=== PATIENT | male | born 2000 | race Caucasian/White ===

== ENCOUNTER 2021-10-08 16:42 | Observation (INO) | payer BC, SELFPAY ==
[2021-10-08] VITALS (7 sets, daily range): BP systolic 99–139; BP diastolic 58–82; PULSE 85–97; RESP 14–22; TEMP 36.2–37.7; O2SAT 99–100; BMI 17.6
--- NOTE | 2021-10-08 16:45 | DI.CT_ITS ---
Exam(s) CT ABDOMEN PELVIS W EXAM: CT ABDOMEN PELVIS W CLINICAL HISTORY: lower R> L abd pain TECHNIQUE: Imaging Protocol: Axial computed tomography images with coronal and sagittal reformatted images were created and reviewed CONTRAST MATERIAL: Intravenous: Omnipaque 350 Contrast volume:73 mL Oral: No COMPARISON: No exams were available for comparison FINDINGS: ABDOMEN: Lung Bases: Normal where visualized. Liver: Normal density. No measurable mass. Portal, Superior Mesenteric, and Splenic Veins: Unremarkable. Gallbladder and Biliary Tract: No radiodense calculus or dilation. Pancreas: Normal density, no abnormal calcifications or inflammatory process. Spleen: Normal. Adrenals: No masses seen. Kidneys: Normal size, contour and axis. No radiodense stones or obstructive uropathy. No masses seen. Abdominal Aorta: Abdominal portion non-dilated. Bowel: No obstruction or bowel wall thickening. The appendix measures 1.3 cm in diameter there is enh ancement of the wall at least 2 appendicoliths are seen within the appendix. One cylindrical stone m easures 1.5 cm in length. There is a 0.7 cm appendiceal stone at the junction with the cecum. Mild increased attenuation is seen in the surrounding fat. The findings consistent with acute appendiciti s. Peritoneal Cavity: There is a trace amount of free fluid in the pelvis. No free air. Lymph Nodes: Within normal limits. Bones: Within normal limits for the patient's age. Soft Tissues: Unremarkable. PELVIS: Bladder: Symmetric distention, no gross wall thickening. Reproductive Organs: Unremarkable as visualized. Lymph Nodes: Within normal limits. Bones: Within normal limits for the patient's age. IMPRESSION: Findings of acute appendicitis. No abscess or free air. Complete RADIATION DOSE DELIVERED: 519.57mGy.cm Total DLP DATA REPOSITORY: All CT scans at this facility are submitted to the National Radiology Data Registry (NRDR) Dose Index Registry (DIR) with the [employer] (ACR). RADIATION OPTIMIZATION: All CT scans at this facility use at least one of these dose optimization te chniques: automated exposure control; mA and/or kV adjustment per patient size (includes targeted exa ms where dose is matched to clinical indication); or iterative reconstruction.
--- NOTE | 2021-10-08 16:56 | ED.GENADUL_ITS ---
Discharge Plan Disposition Patient Disposition: [facility] INPATIENT Condition: Improving Discharge Details Chief Complaint: Abd Prob Clinical Impression: Acute appendicitis Primary Care Provider: Candida Madera ED Provider: Bryan Ibarra Home Meds and New Rx's Prescriptions: No Action No Known Home Meds RF: 0 Medical Decision Making This is an otherwise healthy 21-year-old male who presents with abdominal pain that began morning. History crampy, worse with movement, and associated with nausea. Patient is afebrile, pleasant on exam. He does demonstrate mild reboun d tenderness to the right lower quadrant. Differential diagnosis includes appendicitis, gastroenteritis, ileus. The patient had IV access established, given IV fluids and referred for laboratory testing and imaging. White blood cell count is 12, there is predominance of absolute refills. Hematocrit 44 and platelets 193. Chemistries are reassuring as are LFTs and lipase. CT reveals acute appendicitis. Antibiotics administered, will obtain rapid Covid swab. Case discussed with Dr. Cevallos who will see the patient for admission. HPI General Mode of arrival: ambulatory . Date/Time Provider Initiated Documentation: 10/08/21 16:42 . Limitations to Documentation: no limitations . Information obtained by: patient . History of Present Illness 21 year old M presents to the emergency department with the chief complaint of Lower abdominal pain and cramping that began at 5 AM, described as moderate, and is localized to the abdomen. Patient reports no radiation. Patient started experiencing this day(s) and it has been constant. No relieving factors improve symptom(s), No exacerbating factors reported . Patient notes other (Nauseated, decreased appetite.); denies fever/chills. Patient did receive the following treatments prior to arrival, none Related Data Home Medications Medication Instructions Recorded Confirmed Unknown [No Known Home Meds] 10/10/15 10/10/15 Allergies Allergy/AdvReac Type Severity Reaction Status Date / Time No Known Allergies Allergy Unverified 10/10/15 10:30 General Stated Complaint: Abd Prob FARA: 3 Review of Systems Narrative: Otherwise well. No recent fever. 6 systems reviewed and otherwise negative. PFSH All Active Problems (Updated 10/08/21 @ 18:10 by Bryan Ibarra MD) Eye contusion (Acute) Acute appendicitis (Acute) Social History Smoking/Tobacco Use Status: Never Smoking risk assessment performed?: Yes Alcohol Intake: current Alcohol Intake frequency: holidays/special occasions only Drug use: Never Substance use type: marijuana Do you feel safe at home: Yes Do you feel safe in your relationship?: Yes Exam Narrative Exam Narrative: GEN: awake, alert, oriented 3. Pleasant, well groomed, interactive. HEAD: Normocephalic, atraumatic ENT: Mucous membranes moist, External ear exam unremarkable EYES: PERRL, EOMI NECK: Full ROM, no LUCY, no menigismus CHEST/RESP: Nontender, clear to auscultation bilateral, no wheeze/rhonchi/rales CARDIOVASCULAR: RRR, no murmur, rub nima. 2+ Rad pulse bilateral ABDOMEN: Soft, positive bowel sounds. Tender in the lower quadrants right greater than left. Mild rebound present. EXT: Full ROM, no edema, no rash Neuro: Grossly normal neurologic exam, conversant, interactive. Psych: Speech fluent, thoughts congruent, affect normal Course Vital Signs Vital signs: Vital Signs Temperature 36.6 C 10/08/21 16:46 Pulse 85 10/08/21 16:46 Respiratory Rate 18 10/08/21 16:46 Blood Pressure 139/82 10/08/21 16:46 Pulse Oximetry 100 10/08/21 16:46 Temperature 36.6 C 10/08/21 16:46 Temperature Source Tympanic 10/08/21 16:46 Pulse 85 10/08/21 16:46 Respiratory Rate 18 10/08/21 16:46 Respiratory Effort 10/08/21 16:50 Blood Pressure 139/82 10/08/21 16:46 Blood Pressure Position Supine 10/08/21 16:46 Pulse Oximetry 100 10/08/21 16:46 Oxygen Delivery Method Room Air 10/08/21 16:46 Oxygen Flow Rate 0 10/08/21 16:46 Pain Level 8 10/08/21 16:46
[2021-10-08] MEDS: Ondansetron 4 MG/2 ML VIAL IVP (17:17)
[2021-10-08] MEDS: Normal Saline 1,000 ML 125 ML IV (17:18)
[2021-10-08 17:26] LABS: Abs Immature Grans 0.04 10^3/uL (0.0-0.06); Absolute Monocyte Count 0.67 10^3/uL (0.1-0.8); Basophils % 0.2; Eosinophils % 0.2; HCT 44.2 % (40.0-50.0); HGB 14.6 g/dL (13.5-17.5); Immature Grans % 0.3; Lymphocytes % 10.8; MCH 28.9 pg (27.0-33.0); MCV 87.5 fL (80-95); MPV 9.5 fL (8.0-11.0); Monocytes % 5.6; Neutrophils % 82.9; Nucleated RBC 0 %; Platelet Count 193 10^3/uL (130-400); RBC 5.05 10^6/uL (4.36-5.78); RDW 12.3 % (11.8-14.1); RDW-SD 39.4 fL; WBC 12.02 10^3/uL (4.4-10.8)
[2021-10-08 17:27] LABS: Absolute Basophil Count 0.02 10^3/uL (0.0-0.2); Absolute Eosinophil Count 0.02 10^3/uL (0.0-0.7); Absolute Neutrophil Count 9.96 10^3/uL (1.2-6.7)
[2021-10-08] MEDS: Omnipaque 350 MG/ML 100 ML BTL 73 ML IJ (17:35)
[2021-10-08 17:41] LABS: ALT 20 U/L (16-63); AST 18 U/L (15-37); Albumin 4.6 g/dL (3.4-5.0); Alkaline Phosphatase 84 U/L (46-116); Anion Gap 7.4 mmol/L (3-11); BUN 9 mg/dL (7-18); Bilirubin, Total 0.6 mg/dL (0.2-1.0); CO2 29.6 mmol/L (21.0-32.0); CREATININE 0.8 mg/dL (0.70-1.30); Calcium 9.2 mg/dL (8.5-10.1); Chloride 100 mmol/L (98-107); Glucose 110 mg/dL (74-106); Lipase 59 U/L (73-393); Potassium 3.7 mmol/L (3.5-5.1); Sodium 137 mmol/L (136-145); Total Protein 7.6 g/dL (6.4-8.2)
[2021-10-08] MEDS: HYDROmorphone 2 MG/ML VIAL 0.5 MG IVP (18:07)
--- NOTE | 2021-10-08 18:07 | DI.VRAD_ITS ---
PROCEDURE INFORMATION: Exam: CT Abdomen And Pelvis With Contrast Exam date and time: 10/08/2021 4:57 PM Age: 21 years old Clinical indication: Abdominal pain; Localized; Lower TECHNIQUE: Imaging protocol: Computed tomography of the abdomen and pelvis with contrast. Contrast material: OMNIPAQUE 350; Contrast volume: 73 ml; Contrast route: INTRAVENOUS (IV); COMPARISON: No relevant prior studies available. FINDINGS: Lungs: Lung bases are clear. Liver: There is enlargement of the liver, measuring 18 cm. The liver is otherwise unremarkable. Gallbladder and bile ducts: Normal. No calcified stones. No ductal dilation. Pancreas: Normal. No ductal dilation. Spleen: Normal. No splenomegaly. Adrenal glands: Normal. No mass. Kidneys and ureters: Normal. No hydronephrosis. Stomach and bowel: No bowel obstruction or significant bowel wall thickening. There is moderately excessive colonic stool content. Appendix: Distended appendix measuring 1.3 cm. Appendiceal stone measuring 7 mm impacted at the appendiceal/cecal junction. Second cylindrical 1.5 cm appendiceal stone projecting in the mid appendiceal body. Subtle periappendiceal fat stranding. Intraperitoneal space: No free fluid, fluid collections, or pneumoperitoneum. Vasculature: Unremarkable. No abdominal aortic aneurysm. Lymph nodes: No retroperitoneal, pelvic, or mesenteric adenopathy. Urinary bladder: Unremarkable as visualized. Reproductive: Unremarkable as visualized. Bones/joints: No acute skeletal abnormality or aggressive osseous lesion. Soft tissues: No acute body wall soft tissue findings. IMPRESSION: Acute uncomplicated appendicitis. Note is made of at least 2 appendicoliths, as detailed above. COMMENTS: THIS REPORT CONTAINS FINDINGS THAT MAY BE CRITICAL TO PATIENT CARE. The findings were verbally communicated via telephone conference with JAY GUERRA at 6:05 PM EST on 10/08/2021. The findings were acknowledged and understood. Dictated and Authenticated by: Narciso Perez MD. Ordering:DAMASO Adams MD
[2021-10-08] MEDS: ACETAMINOPHEN 1,000 MG/100 ML BTL 400 MG IVPB (18:08)
[2021-10-08 18:19] LABS: Source Nasal/Nares
[2021-10-08] MEDS: PIPERACILLIN/TAZO 3.375 GM in Normal Saline 50 ML IVPB (18:34)
[2021-10-08 18:56] LABS: COVID-19 PCR Negative (Negative)
--- NOTE | 2021-10-08 19:19 | HPE_ITS ---
Date of service: 10/08/21 Time of Service: 19:19 Assessment and Plan Assessment and plan (1) Acute appendicitis: Status: Acute Assessment and plan: Today we discussed we he could expect during surgery, we will admit him to the hospital postoperatively. I anticipate his discharge tomorrow. He will get antibiotics for the procedure. He will need 2 weeks off of work. He is not working right now. We discussed risks of surgery including but not limited to: Bleeding, infection, pneumonia, blood clots, complications of anesthesia, possible open procedure, damage to bowel, bladder, blood vessels. Possible damage to other organs, possible bowel obstructions from appendicitis in the future, complications of hernias or abscesses, and other unforetold complications, or anesthesia. Patient is Covid negative He received antibiotics in the ER All questions answered to patient satisfaction. He is stable for the proposed procedure History of Present Illness Narrative: Patient woke up at 5 AM with right lower quadrant pain. He denies any unusual activities or fluids yesterday. He denies any trauma. He normally does not have any GI issues. Pain progress became worse throughout the course of the day and he came into the ER. He has nausea but he has not vomited. He has no appetite. Last time he had anything to eat or drink was at [address] shows a dilated appendix and fecaliths. There is no abscess. White count is 12. He has never had any abdominal surgery before. He had anesthesia for wisdom teeth and had no problems. He is not on any medication. He denies any medical problems. He smokes tobacco and THC regularly. NKDA. Review of Systems All systems reviewed & are unremarkable except as noted in HPI and below PFSH All Active Problems Eye contusion (Acute) Acute appendicitis (Acute) Social History Smoking/Tobacco Use Status: Never Smoking risk assessment performed?: Yes Alcohol Intake: current Alcohol Intake frequency: holidays/special occasions only Drug use: Never Substance use type: marijuana Do you feel safe at home: Yes Do you feel safe in your relationship?: Yes Meds Allergies and Home Medications Allergies Allergy/AdvReac Type Severity Reaction Status Date / Time No Known Allergies Allergy Unverified 10/10/15 10:30 Home Medications Medication Instructions Recorded Confirmed Type Unknown [No Known Home Meds] 10/10/15 10/10/15 History Exam Const General: cooperative, healthy appearing, comfortable, no acute distress, well developed and well groomed Nutritional Appearance: average body habitus and well nourished Orientation: alert, awake and oriented x3 [facility] Head: normal to inspection, normocephalic and atraumatic Ears: hearing grossly normal bilaterally and external ears normal General nose exam: external nose normal Face and sinus: normal facial exam and sinuses nontender Mouth: oral mucosae normal, lip normal, tongue normal and moist mucous membranes Teeth and gingiva: dentition normal Eyes General: appearance normal, both eyes and all related structures Conjunctivae: conjunctivae normal Sclera: sclerae normal Pupils: PERRL Neck Neck: normal visual inspection and full ROM Chest Chest: normal inspection of the chest Resp Effort & Inspection: normal respiratory effort, able to speak in complete sentences, no cough, no nasal flaring, not tachypneic and no use of accessory muscles Auscultation: clear to auscultation bilaterally, no rales, no rhonchi and no wheezes Cardio Jugular venous pressure: no JVD Rate: regular rate Rhythm: regular rhythm GI Inspection: normal to inspection, no edema and non-distended Palpation: soft, no masses, tender in the RLQ (Localized guarding) and No ascites Auscultation: normal bowel sounds Skin General skin exam: no rashes or lesions noted Trauma: no lacerations or abrasions Neuro General: patient alert, patient oriented x3, oriented, gait normal, moves all extremities, no focal motor deficits and CN's II-XI intact bilaterally Cognition: normal cognition Speech: speech normal Gait: normal gait Motor: muscle tone normal throughout Extrem General: normal to inspection, full ROM and no clubbing, cyanosis or edema Psych Appearance: grossly normal and well kempt Mental Status: mental status grossly normal Speech and Movement: speech and movement normal Affect: normal affect Results Labs Result diagrams: 10/08/21 17:07 10/08/21 17:07 Labs: Laboratory Results - last 24 hr 10/08/21 10/08/21 10/08/21 17:07 17:07 18:14 WBC 12.02 H RBC 5.05 Hgb 14.6 Hct 44.2 MCV 87.5 MCH 28.9 MCHC 33.0 RDW 12.3 Plt Count 193 MPV 9.5 Immature Gran % 0.3 Neutrophils % 82.9 Lymphocytes % 10.8 Monocytes % 5.6 Eosinophils % 0.2 Basophils % 0.2 Nucleated RBC % 0 Absolute Neutrophils 9.96 H Absolute Lymphocytes 1.30 Absolute Monocytes 0.67 Absolute Eosinophils 0.02 Absolute Basophils 0.02 Sodium 137 Potassium 3.7 Chloride 100 Carbon Dioxide 29.6 Anion Gap 7.4 BUN 9 Creatinine 0.8 Estimated GFR/1.73 m2 >= 60.00 Glucose 110 H Calcium 9.2 Total Bilirubin 0.6 AST 18 ALT 20 Alkaline Phosphatase 84 Total Protein 7.6 Albumin 4.6 Lipase 59 COVID-19 Source Nasal/Nares SARS-CoV-2 (PCR) Negative Last Vital Signs Temp 36.6 C 10/08/21 16:46 Pulse 85 10/08/21 16:46 Resp 18 10/08/21 16:46 BP 139/82 10/08/21 16:46 Pulse Ox 100 10/08/21 16:46
--- NOTE | 2021-10-08 19:20 | W.ANESPRE ---
General Info Date of Service Date Performed: 10/08/21 Height: 5 ft 7 in Weight: 51.256 kg Body Mass Index (BMI): 17.6 Surgical Procedure: Operation Date: 10/08/21 19:00 Proposed Procedures Side Surgeon p Appendectomy Laparoscopic Not Applicable Ariella Cevallos, DO Meds Allergies and Home Medications Allergies Allergy/AdvReac Type Severity Reaction Status Date / Time No Known Allergies Allergy Unverified 10/10/15 10:30 Home Medication Medication Instructions Recorded Unknown [No Known Home Meds] 10/10/15 Current Visit Medications: Current Medications Generic Name Dose Route Start Last Admin Trade Name Freq PRN Reason Stop Dose Admin Sodium Chloride 1,000 mls @ 125 mls/hr 10/08/21 17:00 10/08/21 17:18 Saline 1000ml Bag IV 125 mls/hr INFUSION BUSHRA Administration IV Miscellaneous Supplies 1 each 10/08/21 17:00 Iv Access IV DIRECTED BUSHRA Iohexol 73 ml 10/08/21 17:45 10/08/21 17:35 Omnipaque 350 Mg/Ml 100 Ml Btl IJ 11/07/21 23:59 100 ml DIRECTED BUSHRA Administration Sodium Chloride 0 ml 10/08/21 16:55 Normal Saline Flush 10 Ml Syr IVP PRN PRN Sodium Chloride 50 ml 10/08/21 17:45 10/08/21 17:34 Normal Saline 50 Ml Bag IJ 50 ml DIRECTED BUSHRA Administration PFSH Active Problems Active Problems: Problem Status Onset Code Eye contusion S05.10XA Acute appendicitis K35.80 Tobacco Smoking/Tobacco Use Status: Never Alcohol Alcohol Intake: current Alcohol intake frequency: holidays/special occasions only Substance Use Substance use: Never Substance use type: marijuana Vital Signs and Lab Results Vital Signs Most Recent Vital Signs in EMR: Most Recent Vital Signs Temp Pulse Resp BP Pulse Ox 36.6 C 85 18 139/82 100 10/08/21 16:46 10/08/21 16:46 10/08/21 16:46 10/08/21 16:46 10/08/21 16:46 Lab Results Result Diagrams: 10/08/21 17:07 10/08/21 17:07 Blood Type / Crossmatch: No Data to Display Complete Blood Count: White Blood Count 12.02 10^3/uL (4.4-10.8) H 10/08/21 17:10/08/21 Red Blood Count 5.05 10^6/uL (4.36-5.78) 10/08/21 17:10/08/21 Hemoglobin 14.6 g/dL (13.5-17.5) 10/08/21 17:10/08/21 Hematocrit 44.2 % (40.0-50.0) 10/08/21 17:10/08/21 Platelet Count 193 10^3/uL (130-400) 10/08/21 17:10/08/21 Complete Metabolic Panel: Sodium Level 137 mmol/L (136-145) 10/08/21 17:10/08/21 Potassium Level 3.7 mmol/L (3.5-5.1) 10/08/21 17:10/08/21 Chloride Level 100 mmol/L (98-107) 10/08/21 17:10/08/21 Carbon Dioxide Level 29.6 mmol/L (21.0-32.0) 10/08/21 17:10/08/21 Blood Urea Nitrogen 9 mg/dL (7-18) 10/08/21 17:10/08/21 Creatinine 0.8 mg/dL (0.70-1.30) 10/08/21 17:10/08/21 Estimated GFR/1.73 m2 >= 60.00 (mL/min/1.73m2) 10/08/21 17:10/08/21 Calcium Level 9.2 mg/dL (8.5-10.1) 10/08/21 17:10/08/21 Albumin 4.6 g/dL (3.4-5.0) 10/08/21 17:10/08/21 Glucose Level 110 mg/dL (74-106) H 10/08/21 17:10/08/21 Liver Function Panel: Alanine Aminotransferase (ALT/SGPT) 20 U/L (16-63) 10/08/21 17:10/08/21 Aspartate Amino Transf (AST/SGOT) 18 U/L (15-37) 10/08/21 17:10/08/21 Coagulation Panel: No Data to Display Cardiac Panel: No Data to Display Arterial Blood Gas: No Data to Display Venous Blood Gas: No Data to Display Pancreas Panel: Lipase 59 U/L (73-393) 10/08/21 17:07 10/08/21 Thyroid Panel: No Data to Display Infectious Disease: Coronavirus (COVID-19)(PCR) Negative (Negative) 10/08/21 18:14 10/08/21 Coronavirus 2019 Source Nasal/Nares 10/08/21 18:14 10/08/21 Blood Cultures: No Data to Display Toxicology Panel: No Data to Display Anesthesia Assessment and Plan Anesthesia History Personal History: No History of Anesthesia Complications Family History: No Family History of Anesthesia Complications Exercise Tolerance Exercise Tolerance: Metabolic Equivalents>4 Cardiac & Pulmonary Exam Cardiac Exam: Normal S1/S2 Heart Sounds Pulmonary Exam: Clear Bilateral Breath Sounds Implantable Cardiac Device Does patient have a Pacemaker or an ICD?: No Airway Exam Known Difficult Airway: No Mallampati Class: 2 Mouth Opening: Normal (> 3cm) Thyromental Distance: Greater than 3 cm Neck Range of Motion: Full ROM Neck Circumference: Normal Teeth Condition: Normal Dentition ASA Classification ASA Score: ASA 2 Emergency Case?: Yes NPO Status NPO Status: Full Stomach Anesthesia Plan Resuscitation Status: Full Code Anesthesia Technique: General Anesthesia Airway Planned: Endotracheal Tube Monitors Used: Standard Monitors Preoperative Comments:: 21 yo male for appy. Denies significant PMHx. vapes tobacco/cannabis. States had orange earlier today, CT scan shows decent about of contents in stomach. Plan: BETI SU.
[2021-10-08] MEDS: Lactated Ringers 1,000 ML 30 ML IV (19:47)
[2021-10-08] MEDS: Bupivacaine 0.25% Pres-Free 30 ML VIAL (20:17)
--- NOTE | 2021-10-08 20:27 | APP_PTH ---
PATIENT: Jad Aguirre LOC: U#:[id number] AGE/SX: 21/M ROOM: [id number] RE10/08/[address]: Ariella Cevallos : 2000 BED: A DIS: 10/10/2021 SPEC #: [id number] RECD: 10/09/21 12:05 STATUS: MEMO REQ #: [id number] DOUGLAS: 10/08/21 20:[address]: Ariella Cevallos DEPT: Surgical Specimen RECD BY: Nithya Olivas ENTERED: 10/09/21 12:06 SP TYPE: Appendix OTHR DR: Candida Madera Tissues: 1 - APPENDIX NOT INCIDENTAL Procedures: GROSS AND MICRO LEVEL 3 Comments: [id number]
--- NOTE | 2021-10-08 20:45 | ROE_ITS ---
Date of service: 10/08/21 Time of Service: 20:45 Operative Note Operative Note DATE OF PROCEDURE: 10/08/21 PRE-OP DIAGNOSIS: acute appendicitis POST-OP DIAGNOSIS: same Laparoscopic appendectomy PROCEDURE: Laparoscopic appendectomy SURGEON: Aaron Domingo ANESTHESIOLOGY FELLOW: Itzel Sears ANESTHESIA TYPE: Local By Surgeon and General LMA/ETT Refer to Anesthesia Record ESTIMATED BLOOD LOSS: 5 PATHOLOGY: other COMPLICATIONS: None Patient was transported to: PACU Procedure Description: INDICATIONS: The patient has signs and symptoms compatible with acute appendicitis and is brought to the OR for laparoscopic appendectomy, possible open procedure. Informed consent is obtained for the procedural (explained in simple layman's t erms that the pt and/or family could understand) explaining risks vs benefits and alternatives to the procedure and consequences if we do not do the procedure. Risks include but are not limited to:bleeding,infections, pneumonia, blood clots/DVT/PE, anesthesia(aspiration, damage to teeth/airway/OH/CVA//prolonged mechanical ventilation/PTX/IV infections), damage to bowel, bladder,blood vessels, ureters. Damage to solid organs requiring removal. Infertility. Leakage from anastomosis requiring colostomy. Wound infections requirng further surgery. Scarring and disfigurement. Subsequent bowel obstructions from scar tissue. Possible open procedure if minimaly invsive procedure is being attempted. Abscess and stump appendicitis as well as others. DESCRIPTION OF PROCEDURE: The patient was brought to the operating room suite and placed in supine position. Anesthesia was administered per the Department of Anesthesia. A Hunter catheter and OG tube are placed. The patient was prepped and draped in the usual sterile fashion using ChloraPrep scrub solution. Pause for the cause was done. 30 mL of 1% buffered was used for local anesthetization. A stab incision was made in the umbilicus and the Veress was inserted. Drop test was positive and insufflation was begun. When 15 mm of pressure was noted on the monitor, the Veress was removed, a #5 port inserted. Camera inserted through the port shows no damage to underlying structures. Bowel, liver and stomach that are visualized are normal in appearance. The appendix is inflamed, erythematous,enlarged, & distened, but does not appear to have been ruptured. There is no purulent drainage in the pelvis. The tip of the appendix is adhered down to the sigmoid colon. This is dissected off. There are also significant amount of adhesions from the right colon up to the anterior abdominal wall. Approximately half of these are taken down to provide visualization. These are taken down with sharp dissection. No bleeding is noted. A 12 mm port was then placed in the suprapubic position under direct visualization following creation of a local field block as well as a second 5 mm port in the LLQ. The appendix is elevated and a rent dissected into the mesentery. The base of the appendix is healthy and will hold dalia. A Endo-FALLON stapler is placed across the base of the appendix and fired and 2nd stapler placed across the mesentery and fired. The appendix is placed in a bag and brought out. There is no bleeding or enteric leakage from the staple lines. The pt does not require a drain. The abdomen was copiously irrigated with a liter of saline. All saline is evacuated. The scope and ports are removed. Pneumoperitoneum is evacuated. The fascia under the 12 mm port is closed with 0 Vicryl. There was no bleeding from the port sites as when they removed and the pneumoperitoneum evacuated. The wounds were copiously irrigated and closed in 2 layers with 4-0 Monocryl. Skin glue is used. Sterile dressings are applied. The patient tolerated the procedure without complication, transferred to the recovery room in stable condition. Family was apprised of patient condition. The patient can be discharged home later today. AARON DOMINGO, DO ?
--- NOTE | 2021-10-08 20:49 | W.PM.DS.N ---
Date of service: 10/09/21 DS: Diagnosis Discharge Diagnosis (1) Acute appendicitis: Status: Resolved Discharge Plan Disposition Patient Disposition: HOME Condition: Improving Discharge Details Reason For Visit: Appendicitis Admit Date/Time: 10/08/21 19:40 Admit Provider: Ariella Cevallos Attending Provider: Ariella Cevallos Primary Care Provider: Candida Madera Hospital Course Hospital Course: Patient was admitted to the hospital after being diagnosed with acute apepndicitis. He underwent laparoscopic appendectomy which was uneventful but was kept in the hospital for post operative pain control and nausea. He is now tolerating a regular diet with minimal pain and would like to go home. He otherwise had no issues related to recovery during his hospital stay. Home Meds and New Rx's Prescriptions: New tramadol [Ultram] 50 mg tablet 50 mg PO Q6H PRNQty: 7 RF: 0 Discharge Instructions Additional Instructions: Care after Appendicitis Surgery -Pain control: For the first 72 hours after surgery, take you pain meds continuously and not just when you have pain. Alternate Tylenol 1000mg by mouth every 8 hours, and Ibuprofen 600mg every 6 hours. Make sure you take ibuprofen with food and not on an empty stomach. Use the tramadol for breakthrough pain- pain that is greater than a 7. - Use ICE! Ice really helps to keep the swelling down, and swelling causes pain. Twenty minutes on, and then off, continuously for the first 72hours. After the first 72hrs, you can just use the Tylenol, ibuprofen , and ice, when you have pain. If you are taking narcotic pain medication, follow the instructions on the label and do not drive. Pain medications can make you very constipated. Make sure you are moving your bowels daily. If not, take Miralax, milk of magnesia or magnesium citrate. - Anesthesia makes you very constipated. Take a dose of milk of magnesia the morning after surgery. ? Use an ice bag for the first 72 hours. This helps to decrease swelling, which causes pain. It is normal to be more sore/painful and swollen towards the end of the day and first thing in the morning. ? Use milk of magnesia or prune juice to prevent constipation (this is a particular side effect of pain medication and anesthesia). Do not allow yourself to become constipated. -There are no restrictions on diet Start out eating very small, bland amounts of food. Do not take pain pills on an empty stomach. - You will notice purple discoloration around the incisions. This is the ?skin glue?. This will wear off on its own. It is OK to shower after 24hrs. You do not need to cover the incisions. No bath, swimming, hot tubs for 2 weeks -You should walk frequently, gradually, increasing the distance. You may climb stairs, just go slowly. ? Do not go swimming or sit in a hot tub for two weeks. ? There are no stitches to remove. ? Do not drive your car x72hrs and then only if you have no pain and can move freely. Do not drive if you are taking pain narcotic pain medications. ? You may resume sexual activity whenever pain and soreness subside, usually in 2 weeks. ? Do no lift anything over 5 lbs. for two weeks. ? You may return to work in one week, or when you feel able, provided you do not have to do any heavy lifting or prolonged standing. ? You should return to Dr. Cevallos?s office for a post-op appointment about one week after surgery. Please call the Surgical [facility] at: [phone] to schedule an appointment. My Medications for pain and nausea are: Tylenol and ibuprofen. Ultram for breakthrough pain. Pain that is greater than a 7. When to Call the Office: ? If the incision becomes red or swollen, or there is more than a little drainage from it. ? If you develop a temperature higher than 100.5 F. ? If your eyes turn yellow ? Vomiting and can?t keep fluids down Stand Alone Forms: Nursing Discharge Form Referrals: Ariella Cevallos DO [OSTEOPATHIC DOCTOR] - 10/15/21 Activity:: see above Equipment/Supplies:: No Equipment Needed Diet:: As Tolerated Discharge Orders Discharge Orders: Discharge Order (Routine); Ordered 10/10/21 Ordered By: Jina Calderón Discharge Data Discharge Date/Time-TO BE ENTERED AT DEPARTURE: 10/10/21 16:54 DS: Summary Time Spent with Patient providing and/or coordinating discharge services: Less than 30 minutes Status at Discharge Functional status at discharge: independent ambulation Overall status at discharge: patient is back to baseline Mental Status: mental status grossly normal Speech and Movement: speech and movement normal Mood: congruent mood Affect: normal affect Exam Psych Mental Status: mental status grossly normal Speech and Movement: speech and movement normal Mood: congruent mood Affect: normal affect DS: Data Vitals/I&O Vitals and I&O: Vital Signs Temperature 36.6 C 10/08/21 16:46 Temperature Source Tympanic 10/08/21 16:46 Pulse 85 10/08/21 16:46 Respiratory Rate 18 10/08/21 16:46 Respiratory Effort 10/08/21 16:50 Blood Pressure 139/82 10/08/21 16:46 Blood Pressure Position Supine 10/08/21 16:46 Pulse Oximetry 100 10/08/21 16:46 Oxygen Delivery Method Room Air 10/08/21 16:46 Oxygen Flow Rate 0 10/08/21 16:46 Pain Level 10 10/08/21 18:07 Intake & Output 10/07/21 10/08/21 10/08/21 23:59 11:59 23:59 Intake Total 150 / 150 Balance 150 / 150 Weight 51.256 kg Intake: IV 150 / 150 Data Completed and Pending Labs on day of discharge: Labs from last 24 hours 10/08/21 10/08/21 10/08/21 18:14 17:07 17:07 WBC 12.02 H RBC 5.05 Hgb 14.6 Hct 44.2 MCV 87.5 MCH 28.9 MCHC 33.0 RDW 12.3 Plt Count 193 MPV 9.5 Immature Gran % 0.3 Neutrophils % 82.9 Lymphocytes % 10.8 Monocytes % 5.6 Eosinophils % 0.2 Basophils % 0.2 Nucleated RBC % 0 Absolute Neutrophils 9.96 H Absolute Lymphocytes 1.30 Absolute Monocytes 0.67 Absolute Eosinophils 0.02 Absolute Basophils 0.02 Sodium 137 Potassium 3.7 Chloride 100 Carbon Dioxide 29.6 Anion Gap 7.4 BUN 9 Creatinine 0.8 Estimated GFR/1.73 m2 >= 60.00 Glucose 110 H Calcium 9.2 Total Bilirubin 0.6 AST 18 ALT 20 Alkaline Phosphatase 84 Total Protein 7.6 Albumin 4.6 Lipase 59 COVID-19 Source Nasal/Nares SARS-CoV-2 (PCR) Negative PFSH All Active Problems (Updated 10/11/21 @ 00:03 by JAVI KHAN) Eye contusion (Acute) Social History Smoking/Tobacco Use Status: Never Smoking risk assessment performed?: Yes Alcohol Intake: current Alcohol Intake frequency: holidays/special occasions only Drug use: Never Substance use type: marijuana Do you feel safe at home: Yes Do you feel safe in your relationship?: Yes
--- NOTE | 2021-10-08 21:25 | W.ANESPOSTOP ---
Postoperative Evaluation Date, Time and Location Date Performed: 10/08/21 Time Performed: 21:25 Patient Location: Med/Surg Vital Signs Most Recent Imported Vital Signs: Most Recent Vital Signs Temp Pulse Resp BP Pulse Ox 36.2 C L 92 H 19 117/70 100 10/08/21 21:10 10/08/21 21:10 10/08/21 21:10 10/08/21 21:10 10/08/21 21:10 Pain Score Most Recent Pain Score: Most Recent Pain Score Pain Level 10 10/08/21 18:07 Assessment Mental Status: Awake (Alert & Oriented to Patient Baseline) Airway and Respiratory Function: Patent airway with normal (patient baseline) respiratory exam Cardiovascular Function: Hemodynamically Stable Hydration Status: Adequately Hydrated Nausea & Vomiting: No Nausea or Vomiting Pain: Pain is tolerable per patient Peripheral Nerve Block: Patient did not receive a nerve block
[2021-10-08] MEDS: Enoxaparin 40 MG/0.4 ML SYR SC (21:57)
[2021-10-08] MEDS: Lactated Ringers 1,000 ML 125 ML IV (21:57)
[2021-10-08] MEDS: Normal Saline Flush 10 ML SYR IVP (21:58)
[2021-10-08] MEDS: MORPHine 2 MG/ML SYR IVP (22:19)
[2021-10-08] MEDS: Acetaminophen 500 MG TAB 1000 MG PO (23:37)
[2021-10-09] VITALS (7 sets, daily range): BP systolic 103–124; BP diastolic 55–70; PULSE 77–94; RESP 16–18; TEMP 37–37.8; O2SAT 96–99
[2021-10-09] MEDS: MORPHine 2 MG/ML SYR IVP (01:00)
[2021-10-09] MEDS: Normal Saline Flush 10 ML SYR IVP ×6 (01:00→20:33)
[2021-10-09] MEDS: Ketorolac 15 MG/ML VIAL IVP ×4 (02:17→20:33)
[2021-10-09] MEDS: Acetaminophen 500 MG TAB 1000 MG PO ×4 (05:27→23:51)
[2021-10-09] MEDS: Lactated Ringers 1,000 ML 125 ML IV (05:28)
--- NOTE | 2021-10-09 07:57 | W.PM.PROGNOT ---
Documented by User: OSMAN Mei 10/09/21 08:02 Date of Service Date of service: 10/09/21 Time of Service: 07:57 Assessment and Plan Assessment and plan (1) Acute appendicitis: Status: Acute Assessment and plan: POD #1 s/p laparoscopic Appendectomy Will advance diet for breakfast to soft foods Encouraged activity OOB, sitting in the chair, ambulation Pain is well controlled Continue with ice packs PRN D/C home later today, if tolerating advanced diet and passing flatus. Subjective Subjective Interval history since last seen: Patient states his pain is minimal. He tolerated clear liquids without any nausea or vomiting. He has been ambulating within his room. Exam Const General: cooperative, healthy appearing and comfortable Orientation: alert and oriented x3 Resp Effort & Inspection: normal respiratory effort, no audible wheezes and no cough Auscultation: clear to auscultation bilaterally GI Palpation: soft, no guarding and tender Auscultation: hypoactive bowel sounds Other: Mild swelling around the port sites. No erythema Objective Last Vital Signs Temp 37.5 C 10/09/21 05:35 Pulse 92 H 10/09/21 05:35 Resp 17 10/09/21 05:35 BP 124/69 10/09/21 05:35 Pulse Ox 99 10/09/21 05:35 Laboratory Results - last 24 hr 10/08/21 10/08/21 10/08/21 17:07 17:07 18:14 WBC 12.02 H RBC 5.05 Hgb 14.6 Hct 44.2 MCV 87.5 MCH 28.9 MCHC 33.0 RDW 12.3 Plt Count 193 MPV 9.5 Immature Gran % 0.3 Neutrophils % 82.9 Lymphocytes % 10.8 Monocytes % 5.6 Eosinophils % 0.2 Basophils % 0.2 Nucleated RBC % 0 Absolute Neutrophils 9.96 H Absolute Lymphocytes 1.30 Absolute Monocytes 0.67 Absolute Eosinophils 0.02 Absolute Basophils 0.02 Sodium 137 Potassium 3.7 Chloride 100 Carbon Dioxide 29.6 Anion Gap 7.4 BUN 9 Creatinine 0.8 Estimated GFR/1.73 m2 >= 60.00 Glucose 110 H Calcium 9.2 Total Bilirubin 0.6 AST 18 ALT 20 Alkaline Phosphatase 84 Total Protein 7.6 Albumin 4.6 Lipase 59 COVID-19 Source Nasal/Nares SARS-CoV-2 (PCR) Negative PAWSS Have you Been Recently Intoxicated or Drunk Within the Last 30 days?: Yes Have you Ever Experienced Previous Episodes of Alcohol Withdrawal?: No Result: 1 Documented by User: Ariella Cevallos, 10/09/21 17:10 Assessment and Plan Assessment and plan (1) Acute appendicitis: Status: Acute Assessment and plan: pt vomited this afternoon. He says he's not really passing gas. He hasnt been walking out of his room. No fever or chills no cp or sob. pain is well controlled. He has some mild distention. L: cta b/l H: R/R/R A: incisions are C/D/I good bs LE- no pain or swelling -IV fluids re-started -encourage pt to be up walking -Miralax
[2021-10-09] MEDS: Milk of Magnesia 30 ML CUP PO (09:45)
[2021-10-09] MEDS: Ondansetron 4 MG/2 ML VIAL IVP (12:12)
[2021-10-09] MEDS: Lactated Ringers 1,000 ML 100 ML IV ×2 (15:00→22:24)
[2021-10-09] MEDS: Polyethylene Glycol 3350 17 GM PACKET PO (17:12)
--- NOTE | 2021-10-09 18:10 | NUR.NOTE ---
Nursing Note: Patient adckc3f he is feeling better, he has verbalized that he has passed increased flatus, but no bm. Left it up to the patient to decide if he wants to go home tonight or not
--- NOTE | 2021-10-09 18:30 | INITIAL_ITS ---
- If Service Date Differs Date of service: 10/09/21 Time of Service: 18:30 Care Management Initial Assess REASON FOR HOSPITALIZATION:: appendicitis PAST MEDICAL HISTORY/PAST SURGICAL HISTORY:: All Active Problems. Eye contusion (Acute). Acute appendicitis (Acute) PREVIOUS FUNCTIONAL STATUS/SOCIAL/FAMILY SUPPORTS:: Jad lives in [place]. He identifies family and friends as supportive. He is independent at baseline. CURRENT FUNCTIONAL STATUS:: Jad was sitting up in bed when CM met with him. He reported that he spoke to the MD, and may be able to go home today if he is able to tolerate his advanced diet. He then stated that he tried to eat some eggs and vomited. He reported that he is comfortable staying overnight for further observation if needed. His parents will drive him home once he is medically ready. CM will continue to follow. ADVANCE DIRECTIVES:: None on file. Has patient been provided with info about the portal/API?: Yes Did the patient sign up for the portal?: No CODE STATUS:: Full Code INSURANCE COVERAGE / FINANCIAL ISSUES:: [employer] CURRENT HOME/COMMUNITY SERVICES/EQUIPMENT:: None. PRIMARY CARE PHYSICIAN:: Candida Madera POTENTIAL DISCHARGE NEEDS:: Follow up appointments. PATIENT/FAMILY EDUCATION NEEDS:: Review discharge instructions and limitations, discussion of self care needs including ask me three. ANTICIPATED BARRIERS TO DISCHARGE:: None identified. TRANSPORTATION:: Via private vehicle by his parents. PLAN:: Jad will return home once medically cleared by MD. His parents will drive him home via private vehicle. He will follow up with his PCP and discharge plan of care. CM will continue to follow.
[2021-10-09] MEDS: Enoxaparin 40 MG/0.4 ML SYR SC (20:48)
[2021-10-10] MEDS: Ketorolac 15 MG/ML VIAL IVP ×3 (02:20→14:08)
[2021-10-10] MEDS: Normal Saline Flush 10 ML SYR IVP ×2 (02:20→08:01)
[2021-10-10 05:00] VITALS: BP 110/67; PULSE 74; RESP 16; TEMP 37.7; O2SAT 98
[2021-10-10] MEDS: Acetaminophen 500 MG TAB 1000 MG PO ×2 (05:11→12:13)
[2021-10-10] MEDS: Lactated Ringers 1,000 ML 100 ML IV (06:23)
[2021-10-10 07:09] LABS: Abs Immature Grans 0.02 10^3/uL (0.0-0.06); Absolute Basophil Count 0.02 10^3/uL (0.0-0.2); Absolute Eosinophil Count 0.04 10^3/uL (0.0-0.7); Absolute Lymphocyte Count 1.07 10^3/uL (1.2-3.4); Absolute Monocyte Count 0.58 10^3/uL (0.1-0.8); Absolute Neutrophil Count 3.59 10^3/uL (1.2-6.7); Basophils % 0.4; Eosinophils % 0.8; HCT 39.2 % (40.0-50.0); HGB 12.4 g/dL (13.5-17.5); Immature Grans % 0.4; Lymphocytes % 20.1; MCH 28.4 pg (27.0-33.0); MCHC 31.6 % (32.0-36.0); MCV 89.7 fL (80-95); MPV 9.8 fL (8.0-11.0); Monocytes % 10.9; Neutrophils % 67.4; Nucleated RBC 0 %; Platelet Count 159 10^3/uL (130-400); RBC 4.37 10^6/uL (4.36-5.78); RDW 12.6 % (11.8-14.1); RDW-SD 41.7 fL; WBC 5.32 10^3/uL (4.4-10.8)
[2021-10-10 07:19] VITALS: BP 97/59; PULSE 75; RESP 16; TEMP 36.8; O2SAT 100
[2021-10-10] MEDS: Polyethylene Glycol 3350 17 GM PACKET PO (08:01)
--- NOTE | 2021-10-10 16:20 | DSE_ITS ---
Date of service: 10/10/21 Time of Service: 14:20 DS: Diagnosis Discharge Diagnosis (1) Acute appendicitis: Status: Acute Discharge Plan Disposition Patient Disposition: HOME Condition: Improving Discharge Details Reason For Visit: Appendicitis Admit Date/Time: 10/08/21 19:40 Admit Provider: Ariella Cevallos Attending Provider: Ariella Cevallos Primary Care Provider: Candida Madera Hospital Course Hospital Course: Patient was admitted to the hospital after being diagnosed with acute apepndicitis. He underwent laparoscopic appendectomy which was uneventful but was kept in the hospital for post operative pain control and nausea. He is now tolerating a regular diet with minimal pain and would like to go home. He otherwise had no issues related to recovery during his hospital stay. Home Meds and New Rx's Prescriptions: New tramadol [Ultram] 50 mg tablet 50 mg PO Q6H PRNQty: 7 RF: 0 Discharge Instructions Additional Instructions: Care after Appendicitis Surgery -Pain control: For the first 72 hours after surgery, take you pain meds continuously and not just when you have pain. Alternate Tylenol 1000mg by mouth every 8 hours, and Ibuprofen 600mg every 6 hours. Make sure you take ibuprofen with food and not on an empty stomach. Use the tramadol for breakthrough pain- pain that is greater than a 7. - Use ICE! Ice really helps to keep the swelling down, and swelling causes pain. Twenty minutes on, and then off, continuously for the first 72hours. After the first 72hrs, you can just use the Tylenol, ibuprofen , and ice, when you have pain. If you are taking narcotic pain medication, follow the instructions on the label and do not drive. Pain medications can make you very constipated. Make sure you are moving your bowels daily. If not, take Miralax, milk of magnesia or magnesium citrate. - Anesthesia makes you very constipated. Take a dose of milk of magnesia the morning after surgery. ? Use an ice bag for the first 72 hours. This helps to decrease swelling, which causes pain. It is normal to be more sore/painful and swollen towards the end of the day and first thing in the morning. ? Use milk of magnesia or prune juice to prevent constipation (this is a par ticular side effect of pain medication and anesthesia). Do not allow yourself to become constipated. -There are no restrictions on diet Start out eating very small, bland amounts of food. Do not take pain pills on an empty stomach. - You will notice purple discoloration around the incisions. This is the ?skin glue?. This will wear off on its own. It is OK to shower after 24hrs. You do not need to cover the incisions. No bath, swimming, hot tubs for 2 weeks -You should walk frequently, gradually, increasing the distance. You may climb stairs, just go slowly. ? Do not go swimming or sit in a hot tub for two weeks. ? There are no stitches to remove. ? Do not drive your car x72hrs and then only if you have no pain and can move freely. Do not drive if you are taking pain narcotic pain medications. ? You may resume sexual activity whenever pain and soreness subside, usually in 2 weeks. ? Do no lift anything over 5 lbs. for two weeks. ? You may return to work in one week, or when you feel able, provided you do not have to do any heavy lifting or prolonged standing. ? You should return to Dr. Cevallos?s office for a post-op appointment about one week after surgery. Please call the Surgical Clinic at: [phone] to schedule an appointment. My Medications for pain and nausea are: Tylenol and ibuprofen. Ultram for breakthrough pain. Pain that is greater than a 7. When to Call the Office: ? If the incision becomes red or swollen, or there is more than a little drainage from it. ? If you develop a temperature higher than 100.5 F. ? If your eyes turn yellow ? Vomiting and can?t keep fluids down Referrals: Ariella Cevallos DO [OSTEOPATHIC DOCTOR] - 10/15/21 Activity:: see above Equipment/Supplies:: No Equipment Needed Diet:: As Tolerated Discharge Orders Discharge Orders: Discharge Order (Routine); Ordered 10/10/21 Ordered By: Jina Calderón DS: Summary Time Spent with Patient providing and/or coordinating discharge services: Less than 30 minutes Status at Discharge Functional status at discharge: independent ambulation Overall status at discharge: patient is progressing back to baseline Mental Status: mental status grossly normal Speech and Movement: speech and movement normal Mood: congruent mood Affect: normal affect Exam Const General: cooperative, healthy appearing and comfortable Orientation: alert, awake and oriented x3 [facility] Head: normal to inspection, normocephalic and atraumatic Resp Effort & Inspection: normal respiratory effort, no audible wheezes and no cough Auscultation: clear to auscultation bilaterally GI Inspection: incision (intact with skin glue) Palpation: soft, no guarding and tender (appropriate post operative) Other: Mild swelling around the port sites. No erythema Skin General skin exam: no rashes or lesions noted Neuro General: patient alert, patient awake and patient oriented x3 Psych Mental Status: mental status grossly normal Speech and Movement: speech and movement normal Mood: congruent mood Affect: normal affect DS: Data Vitals/I&O Vitals and I&O: Vital Signs Temperature 98.2 F 10/10/21 07:19 Temperature Source Tympanic 10/10/21 07:19 Pulse 75 10/10/21 07:19 Pulse Rhythm Regular 10/10/21 09:00 Respiratory Rate 16 10/10/21 07:19 Respiratory Effort Non-Labored 10/10/21 09:00 Respiratory Depth Normal 10/10/21 09:00 Respiratory Pattern Normal 10/10/21 09:00 Blood Pressure 97/59 L 10/10/21 07:19 Blood Pressure Position Supine 10/08/21 16:46 Pulse Oximetry 100 10/10/21 07:19 Respiratory End-tidal CO2 38 10/08/21 21:10 Oxygen Delivery Method Room Air 10/10/21 07:19 Oxygen Flow Rate 0 10/10/21 07:19 Pain Level 1 10/10/21 14:08 Comment 10/10/21 05:00 Intake & Output 10/09/21 10/10/21 10/10/21 23:59 11:59 23:59 Intake Total 1250 / 2858.333 798.333 / 798.333 Output Total 400 / 1850 Balance 850 / 1008.333 798.333 / 798.333 Intake: IV 750 / 1858.333 798.333 / 798.333 Oral 500 / 1000 Output: Emesis 400 / 400 Other: Urine Color Pale Yellow Yellow Urine Appearance Clear Clear Urine Odor Normal Normal Comment Pt voided outside the hat. Pt voided outside the hat. Stool Size Small Small Stool Characteristics Soft Soft Formed Formed Brown Emesis Description Retching Bile Voiding Methods Toilet Toilet Data Completed and Pending Labs on day of discharge: Labs from last 24 hours 10/10/21 06:22 WBC 5.32 RBC 4.37 Hgb 12.4 L D Hct 39.2 L MCV 89.7 MCH 28.4 MCHC 31.6 L RDW 12.6 Plt Count 159 MPV 9.8 Immature Gran % 0.4 Neutrophils % 67.4 Lymphocytes % 20.1 Monocytes % 10.9 Eosinophils % 0.8 Basophils % 0.4 Nucleated RBC % 0 Absolute Neutrophils 3.59 Absolute Lymphocytes 1.07 L Absolute Monocytes 0.58 Absolute Eosinophils 0.04 Absolute Basophils 0.02 PFSH All Active Problems Eye contusion (Acute) Acute appendicitis (Acute) Social History Smoking/Tobacco Use Status: Never Smoking risk assessment performed?: Yes Alcohol Intake: current Alcohol Intake frequency: holidays/special occasions only Drug use: Never Substance use type: marijuana Do you feel safe at home: Yes Do you feel safe in your relationship?: Yes
== END 2021-10-10 16:54 | disposition home or self-care (01) | DRG 343 ==
LOC: ER 18:10 → DSU 19:36 → MS 21:01
PROVIDERS: Admitting Provider Surgery; Emergency Provider Emergency Medicine; PCP Pediatrics; Visit Provider Surgery
PROC: 0DTJ4ZZ Resection of Appendix, Percutaneous Endoscopic Approach (ICD-10-PCS; CPT 44970; principal; 2021-10-08 19:00)
DX: K35.80 Unspecified acute appendicitis (principal); K38.1 Appendicular concretions
CPT/HCPCS: 44970; 36415; 80053; 83690; 87635; 96361; 96365; 96375; 99284; 99285; J1650; 74177; 85025; 88304; G0378; J0131; J1100; J1885; J2001; J2270; J2405; J2543; J2704; J3490

== ENCOUNTER 2022-07-01 14:51 | Outpatient (REF) | payer BC, SELFPAY ==
[2022-07-01 14:52] LABS: Absolute Basophil Count 0.02 10^3/uL (0.0-0.2); Absolute Eosinophil Count 0.07 10^3/uL (0.0-0.7); Absolute Lymphocyte Count 2.01 10^3/uL (1.2-3.4); Absolute Monocyte Count 0.31 10^3/uL (0.1-0.8); Absolute Neutrophil Count 1.67 10^3/uL (1.2-6.7); Basophils % 0.5; Eosinophils % 1.7; HCT 45.7 % (40.0-50.0); HGB 15.6 g/dL (13.5-17.5); Lymphocytes % 49.3; MCH 29.2 pg (27.0-33.0); MCHC 34.1 % (32.0-36.0); MCV 85 fL (80-95); MPV 9.9 fL (8.0-11.0); Monocytes % 7.6; Neutrophils % 40.9; Platelet Count 242 10^3/uL (130-400); RBC 5.35 10^6/uL (4.36-5.78); RDW 12.4 % (11.8-14.1); RDW-SD 38.1 fL; WBC 4.08 10^3/uL (4.4-10.8)
[2022-07-01 15:10] LABS: Iron 83 ug/dL (65-175); Total Iron Binding Capacity 330 ug/dL (250-450); Transferrin Sat 25 % (20-55)
[2022-07-01 15:26] LABS: ALT 17 U/L (16-63); AST 18 U/L (15-37); Albumin 4.8 g/dL (3.4-5.0); Alkaline Phosphatase 75 U/L (46-116); Anion Gap 4.1 mmol/L (3-11); BUN 17 mg/dL (7-18); Bilirubin, Total 0.3 mg/dL (0.2-1.0); CO2 32.9 mmol/L (21.0-32.0); Calcium 9.6 mg/dL (8.5-10.1); Chloride 103 mmol/L (98-107); Estimated GFR 109.13 (mL/min/1.73m2); Glucose 91 mg/dL (74-106); Potassium 4.1 mmol/L (3.5-5.1); Sodium 140 mmol/L (136-145); TSH (W/Ref FT4) 1.36 uIU/mL (0.36-3.74); Total Protein 7.9 g/dL (6.4-8.2)
[2022-07-01 15:31] LABS: Vitamin D 25 Total 31.4 ng/mL (30-100)
== END 2022-07-01 14:52 | disposition home or self-care (01) ==
LOC: NCHCN 14:51
PROVIDERS: PCP Pediatrics; Visit Provider Nurse Practitioner Family
DX: R53.83 Other fatigue (principal); F41.8 Other specified anxiety disorders
CPT/HCPCS: 80053; 82306; 83540; 83550; 84443; 85025

== ENCOUNTER 2022-11-10 08:43 | Emergency (ER) | payer BC, SELFPAY ==
[2022-11-10 08:54] VITALS: BP 114/80; PULSE 83; RESP 16; TEMP 36.7; O2SAT 100
--- NOTE | 2022-11-10 09:32 | W.ED.GENAD ---
Discharge Plan Disposition Patient Disposition: Home Discharge Details Clinical Impression: Infected skin lesion, History of shingles Primary Care Provider: EDILBERTO EDMOND ED Provider: Nithya Vazquez Home Meds and New Rx's Prescriptions: New gabapentin [Neurontin] 300 mg capsule 300 mg PO TID Qty: 90 0RF nystatin [Nyamyc] 100,000 unit/gram powder 1 applic topical TID Qty: 30 0RF cephalexin 500 mg capsule 500 mg PO Q6H 7 Days Qty: 28 0RF Continued gabapentin 300 mg Capsule 300 mg PO DAILY gabapentin 100 mg Capsule 100 mg PO DAILY Discharge Instructions Additional Instructions: Take 300 mg of Neurontin 3 times daily Use the nystatin 3 times daily for the next 14 days, sprinkle it over that area affected Take the antibiotic orally as prescribed We will contact you regarding the results of your wound culture and change medication as needed Return earlier with new or worsening complaints and follow-up with your primary care physician in 48 to 72 hours Take ibuprofen 600 mg 3 times daily and Tylenol 650 mg every 4 hours, do not exceed 3 g in 24 hours Referrals: EDILBERTO EDMOND [Primary Care Provider] - 2 days Medical Decision Making Patient 22-year-old male with rash and lesion noted to nape of neck after previously being diagnosed with shingles and being on 2 courses of steroids I suspect this is a tinea corporis, however not entirely certain and so therefore ordered bacterial and fungal cultures In the interim we will place patient on nystatin powder and Keflex p.o. He will need close outpatient reassessment Increase his gabapentin to 300 mg 3 times daily Return precautions reviewed and patient expressed understanding Medical Records Medical records reviewed: Yes I reviewed the patient's medical records. HPI General Date/Time Provider Initiated Documentation: 11/10/22 08:58. HPI Narrative: This 22-year-old male presents with report of shingles diagnosis a week ago for which she is taking gabapentin for nerve pain and Valtrex for shingles. He states he has had drainage and pain to the back of his head. Denies any actual headache associated, fever or chills. Denies any stiff neck or paresthesias. Related Data Home Medications Medication Instructions Recorded Confirmed cephalexin 500 mg capsule 500 mg PO Q6H 7 days #28 caps 11/10/22 gabapentin 100 mg capsule 100 mg PO DAILY 11/10/22 11/10/22 gabapentin 300 mg capsule 300 mg PO DAILY 11/10/22 11/10/22 gabapentin 300 mg capsule 300 mg PO TID #90 caps 11/10/22 (Neurontin) nystatin 100,000 unit/gram topical 1 applic topical TID #30 grams 11/10/22 powder ([facility]) Previous Rx's Medication Instructions Recorded cephalexin 500 mg capsule 500 mg PO Q6H 7 days #28 caps 11/10/22 gabapentin 300 mg capsule 300 mg PO TID #90 caps 11/10/22 (Neurontin) nystatin 100,000 unit/gram topical 1 applic topical TID #30 grams 11/10/22 powder ([facility]) Allergies Allergy/AdvReac Type Severity Reaction Status Date / Time No Known Allergies Allergy Unverified 11/10/22 08:59 General Stated Complaint: RashLesion FARA: 4 PFSH All Active Problems (Updated 11/10/22 @ 09:31 by OSMAN Mcconnell) Infected skin lesion (Acute) History of shingles (Acute) Eye contusion (Acute) Social History Smoking/Tobacco Use Status: Current-Occasional Tobacco Type: cigarettes and e-cigarettes Smoking risk assessment performed?: Yes Alcohol Intake: current Alcohol Intake frequency: holidays/special occasions only Drug use: Never Substance use type: marijuana Do you feel safe at home: Yes Do you feel safe in your relationship?: Yes Exam HENMT Other: Patient with rash to occipital region of head and neck Drainage, purulent noted from nape of neck, fluoresces with Wood lamp no, diffuse superficial tenderness Eyes General: appearance normal, both eyes and all related structures Neck Neck images: 1. Well-demarcated lesion with white discoloration purulent drainage No crepitus or fluctuance Resp Effort & Inspection: normal respiratory effort Auscultation: clear to auscultation bilaterally Cardio Rate: regular rate Rhythm: regular rhythm Neuro General: patient alert and patient oriented x3 Course Vital Signs Vital signs: Vital Signs Temperature 36.7 C 11/10/22 08:54 Pulse 83 11/10/22 08:54 Respiratory Rate 16 11/10/22 08:54 Blood Pressure 114/80 11/10/22 08:54 Pulse Oximetry 100 11/10/22 08:54 Temperature 36.7 C 11/10/22 08:54 Temperature Source Tympanic 11/10/22 08:54 Pulse 83 11/10/22 08:54 Respiratory Rate 16 11/10/22 08:54 Respiratory Effort Normal 11/10/22 08:57 Blood Pressure 114/80 11/10/22 08:54 Blood Pressure Position Sitting 11/10/22 08:54 Pulse Oximetry 100 11/10/22 08:54 Oxygen Delivery Method Room Air 11/10/22 08:54 Oxygen Flow Rate 0 11/10/22 08:54 Pain Level 10 11/10/22 08:54 Lab/Test Results Lab/Test Results: 11/10/22 09:20 Head - Back Wound Culture - Pending 11/10/22 09:20 Head - Back Gram Stain - Pending
[2022-12-08 09:37] LABS: Fungus Smear No Fungi Seen
== END 2022-11-10 09:35 | disposition home or self-care (01) ==
PROVIDERS: Emergency Provider Physician Assistant; PCP Nurse Practitioner Family
DX: Z86.19 Personal history of other infectious and parasitic diseases (principal); L08.89 Other specified local infections of the skin and subcutaneous tissue
CPT/HCPCS: 87077; 87102; 87206; 99283; 87070; 87205

== ENCOUNTER 2022-11-13 12:09 | Emergency (ER) | payer BC, SELFPAY ==
[2022-11-13 12:29] VITALS: BP 107/93; PULSE 84; RESP 24; TEMP 36.7; O2SAT 98
--- NOTE | 2022-11-13 12:45 | ED.GENADUL_ITS ---
Discharge Plan Disposition Patient Disposition: Home Discharge Details Clinical Impression: Post herpetic neuralgia Primary Care Provider: EDILBERTO EDMOND ED Provider: Nithya Vazquez Home Meds and New Rx's Prescriptions: New pregabalin [Lyrica] 150 mg capsule 150 mg PO DAILY Qty: 14 0RF prednisone 10 mg tablet 10 mg PO DAILY Qty: 42 0RF Rx Instructions: Take 6 tablets for 2 days, 5 tablets for 2 days, 4 tablets for 2 days, 3 tablets for 2 days, 2 tablets for 2 days, 1 tablet for 2 days and then discontinue lidocaine-prilocaine 2.5-2.5 % cream 30 g topical ONCE Qty: 30 0RF Rx Instructions: as a single dose 60 min before procedure over area NTE 300 cm2 and 1mm thickness Continued gabapentin 300 mg Capsule 300 mg PO DAILY gabapentin 100 mg Capsule 100 mg PO DAILY gabapentin [Neurontin] 300 mg capsule 300 mg PO TID Qty: 90 0RF nystatin [Nyamyc] 100,000 unit/gram powder 1 applic topical TID Qty: 30 0RF cephalexin 500 mg capsule 500 mg PO Q6H 7 Days Qty: 28 0RF Discharge Instructions Additional Instructions: Stop the Neurontin and start taking Lyrica Start taking the prednisone today Apply the capsaicin cream 4 times daily over the areas that are healed only for the next several weeks, it can sometimes take 4 to 6 weeks for this to take full effect You may use the lidocaine cream as needed for discomfort, do not use more than as prescribed Recheck with your doctor on Tuesday and return earlier with new or worsening complaints Continue on the antibiotic, we will notify you when your fungal culture has returned Referrals: EDILBERTO EDMOND [Primary Care Provider] - 1 day Discharge Data Discharge Date/Time-TO BE ENTERED AT DEPARTURE: 11/13/22 13:11 Medical Decision Making This 22-year-old male presents with persistent pain which initially was secondary to shingles infection, the shingles rash is since resolved mostly and now he is having what appears to be neuropathic pain He is exquisitely tender to light touch, there is no erythema or crepitus noted, there is an area of secondary infection which she is currently taking Keflex for at the nape of his neck which actually is significantly improved from her last encounter I suspect this is postherpetic neuralgia, he is not exhibiting any signs of meningeal involvement is fully alert and oriented, I am placing patient on a steroid taper secondary to his level and persistence of pain I am also placing patient on cayenne lotion, Tylenol as needed pain, switching Neurontin to Lyrica, he has been taking 900 mg a day so I will transition to 150 mg of Lyrica temporarily He is also given Emla cream which may apply topically only the areas with completely healed rash, avoidance of any open areas was discussed in detail with patient and mother He will need close outpatient follow-up, I do not see any other significant reason for his pain although the level of pain that he is experiencing is a little atypical, his exam is certainly reassuring Recheck in 24 to 48 hours encouraged Return earlier return precautions reviewed patient and mother expressed u nderstanding, fully neurologically intact at time of discharge home without any evidence of meningitis clinically on my exam today Medical Records Medical records reviewed: Yes I reviewed the patient's medical records. HPI General Date/Time Provider Initiated Documentation: 11/13/22 12:32 . HPI Narrative: This 22-year-old gentleman presents for repeat assessment for pain associated with recent shingles infection. Patient states that he has been taking Neurontin as prescribed and just recently acquired a prescription for oxycodone which has not alleviated his symptoms. He denies any fever or chills. He states that the drainage and swelling from the possible bacterial infection that was evaluated earlier this week is improved. He states he simply cannot control the pain in the area of his shingles rash that is since started resolving. He denies any fever or chills. He denies any headache or stiff neck. He denies any paresthesias to his extremities. Mother denies any confusion. States he is acting at baseline aside from the discomfort. Related Data Home Medications Medication Instructions Recorded Confirmed cephalexin 500 mg capsule 500 mg PO Q6H 7 days #28 caps 11/10/22 gabapentin 100 mg capsule 100 mg PO DAILY 11/10/22 11/10/22 gabapentin 300 mg capsule 300 mg PO DAILY 11/10/22 11/10/22 gabapentin 300 mg capsule 300 mg PO TID #90 caps 11/10/22 (Neurontin) nystatin 100,000 unit/gram topical 1 applic topical TID #30 grams 11/10/22 powder (Nyamyc) lidocaine-prilocaine 2.5 %-2.5 % 30 g topical ONCE #30 grams 11/13/22 topical cream prednisone 10 mg tablet 10 mg PO DAILY #42 tabs 11/13/22 pregabalin 150 mg capsule (Lyrica) 150 mg PO DAILY #14 caps 11/13/22 Previous Rx's Medication Instructions Recorded cephalexin 500 mg capsule 500 mg PO Q6H 7 days #28 caps 11/10/22 gabapentin 300 mg capsule 300 mg PO TID #90 caps 11/10/22 (Neurontin) nystatin 100,000 unit/gram topical 1 applic topical TID #30 grams 11/10/22 powder (Nyamyc) lidocaine-prilocaine 2.5 %-2.5 % 30 g topical ONCE #30 grams 11/13/22 topical cream prednisone 10 mg tablet 10 mg PO DAILY #42 tabs 11/13/22 pregabalin 150 mg capsule (Lyrica) 150 mg PO DAILY #14 caps 11/13/22 Allergies Allergy/AdvReac Type Severity Reaction Status Date / Time No Known Allergies Allergy Unverified 11/13/22 12:36 General Stated Complaint: RashLesion FARA: 4 PFSH All Active Problems (Updated 11/13/22 @ 13:04 by OSMAN Mcconnell) Infected skin lesion (Acute) History of shingles (Acute) Post herpetic neuralgia (Acute) Eye contusion (Acute) Social History Smoking/Tobacco Use Status: Current-Occasional Tobacco Type: cigarettes and e- cigarettes Smoking risk assessment performed?: Yes Alcohol Intake: current Alcohol Intake frequency: holidays/special occasions only Drug use: Never Substance use type: marijuana Do you feel safe at home: Yes Do you feel safe in your relationship?: Yes Exam Const General: in distress Other: Alert, oriented, intermittently agitated [facility] Head images: 1. Erythema, mild swelling, excoriated lesions Other: No facial rashes or lesions Eyes Pupils: PERRL Neck Other: Resolving vesicular rash noted to posterior neck, superficial tenderness, no meningitis Resp Effort & Inspection: normal respiratory effort Auscultation: clear to auscultation bilaterally Cardio Rate: regular rate Rhythm: regular rhythm Neuro General: patient alert and patient oriented x3 Cranial Nerves: CN's II-XI intact bilaterally and tongue midline Cognition: normal cognition Speech: speech normal Gait: normal gait Course Vital Signs Vital signs: Vital Signs Temperature 36.7 C 11/13/22 12:29 Pulse 84 11/13/22 12:29 Respiratory Rate 24 11/13/22 12:29 Blood Pressure 107/93 H 11/13/22 12:29 Pulse Oximetry 98 11/13/22 12:29 Temperature 36.7 C 11/13/22 12:29 Temperature Source Temporal Artery Scan 11/13/22 12:29 Pulse 84 11/13/22 12:29 Respiratory Rate 24 11/13/22 12:29 Respiratory Effort Normal, Non-Labored 11/13/22 12:33 Blood Pressure 107/93 H 11/13/22 12:29 Blood Pressure Position Sitting 11/13/22 12:29 Pulse Oximetry 98 11/13/22 12:29 Oxygen Delivery Method Room Air 11/13/22 12:29 Oxygen Flow Rate 0 11/13/22 12:29 Pain Level 10 11/13/22 12:29
[2022-11-13] MEDS: Lidocaine/Prilocaine Cream 5 GM TUBE TP (12:58)
== END 2022-11-13 13:11 | disposition home or self-care (01) ==
PROVIDERS: Emergency Provider Physician Assistant; PCP Nurse Practitioner Family
DX: B02.29 Other postherpetic nervous system involvement (principal)
CPT/HCPCS: 99283; 99284